=== PATIENT | male | born 1960 | race Caucasian/White ===

== ENCOUNTER 2020-03-26 13:42 | Emergency (ER) | payer MEDICAID ==
[~2020-03-26] VITALS: Ht 175.3 cm; Wt 68.0 kg
[2020-03-26 13:43] VITALS: BP 153/99
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
--- NOTE | 2020-03-26 14:04 | NUR ---
DR BYERS AT BEDSIDE TO PERLITA PT
[2020-03-26] MEDS ORDERED: SILVER SULF. CRM 1% , 25GM ONE (14:09)
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
[2020-03-26] MEDS ORDERED: SILVER SULF. CRM 1% , 25GM TP ONE (14:30)
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
== END 2020-03-26 14:37 | disposition left against medical advice (07) ==
LOC: ED 14:25
DX: T24.211A Burn of second degree of right thigh, initial encounter (principal); T31.0 Burns involving less than 10% of body surface; F17.200 Nicotine dependence, unspecified, uncomplicated; X08.8XXA Exposure to other specified smoke, fire and flames, initial encounter; Y93.89 Activity, other specified; Y92.488 Other paved roadways as the place of occurrence of the external cause; Y99.8 Other external cause status
CPT/HCPCS: 99281

== ENCOUNTER 2020-03-31 12:49 | Emergency (ER) | payer MEDICAID ==
[~2020-03-31] VITALS: Ht 175.3 cm; Wt 72.3 kg
[2020-03-31] MEDS ORDERED: SODIUM CHLORIDE 0.9% 1,000 ML IV ONE (14:00)
[2020-03-31] MEDS ORDERED: LORazepam 2 MG/ML, 1ML IV ONE ×2 (14:00→15:30)
[2020-03-31] MEDS ORDERED: SODIUM CHLORIDE FLUSH 10ML SYR IVF ONE (14:00)
[2020-03-31] MEDS ORDERED: DIPH,PERTUSS(ACELL),TET VAC/PF 0.5 ML IM-VACC ONE ×2 (14:00→14:04)
[2020-03-31] MEDS ORDERED: PIPERACILLIN/TAZO/PMX 3.375GM 50 ML IVPB ONE (14:00)
[2020-03-31] MEDS ORDERED: NICOTINE 21 MG/24 HR PATCH.TD24 TD ONE (14:00)
[2020-03-31] MEDS ORDERED: PIPERACILLIN/TAZO/PMX 3.375GM 50 ML ONE (14:02)
[2020-03-31] MEDS ORDERED: MORPHINE SULFATE 4 MG/ML, 1ML ONE ×2 (14:03→15:13)
[2020-03-31] MEDS ORDERED: LORazepam 2 MG/ML, 1ML ONE ×2 (14:03→17:42)
[2020-03-31] MEDS ORDERED: NICOTINE 14MG/24 HR PATCH.TD24 ONE (14:03)
[2020-03-31] MEDS ORDERED: ONDANSETRON 2MG/ML, 2ML ONE (14:03)
[2020-03-31] MEDS: MORPHINE SULFATE 4 MG/ML, 1ML IVPush PRN ×2 (14:16→15:16)
[2020-03-31 14:17] LABS: MEAN CORPUSCULAR HEMOGLOBIN 35.2 pg (27.5-34.5); MEAN CORPUSCULAR HGB CONC 34.8 g/dL (33.2-36.2); MEAN PLATELET VOLUME 8.7 fL (7.4-10.4); PLATELET COUNT 122 x10^3/uL (130-400); RED BLOOD COUNT 4.07 x10^6/uL (4.38-5.82); RED CELL DISTRIBUTION WIDTH 13.1 % (9.4-14.8)
[2020-03-31 14:27] LABS: ALANINE AMINOTRANSFERASE 35 U/L (12-78); ALBUMIN 2.8 g/dL (3.4-5.0); ANION GAP 14 mmol/L (5-15); CALCIUM 8.9 mg/dL (8.5-10.1); CHLORIDE 90 mmol/L (98-107); CREATININE 1.07 mg/dL (0.7-1.3)
[2020-03-31] MEDS ORDERED: NICOTINE 21 MG/24 HR PATCH.TD24 ONE (14:27)
[2020-03-31 14:29] LABS: ALKALINE PHOSPHATASE 93 U/L (45-117); BILIRUBIN,TOTAL 0.7 mg/dL (0.2-1.0); TOTAL PROTEIN 7.3 g/dL (6.4-8.2)
[2020-03-31] MEDS ORDERED: ALBU8.5H8 INH (14:31)
[2020-03-31 14:32] LABS: INTERNATIONAL NORMALIZED RATIO 0.9 (0.93-1.1); PROTHROMBIN TIME 9.6 Seconds (9.6-11.5)
[2020-03-31 14:37] LABS: MD YES
--- NOTE | 2020-03-31 14:38 | NUR ---
PT PLACED ON ALL ROOM MONITORING, SINUS TACH ON MONITOR IV PLACED, NS AND ANTIBIOTIC INFUSING AFTER BC X 2 DRAWN. PT MEDICATED FOR 10/10 R LEG PAIN. CALL LIGHT WITHIN REACH.
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
--- NOTE | 2020-03-31 15:16 | NUR ---
PT REMEDICATED FOR PERSISTENT PAIN TO R LEG NOW RATED 7/10. PT AWARE OF NEED FOR UA. AWAITING TRANSFER TO [facility].
--- NOTE | 2020-03-31 15:25 | NUR ---
PULSE OX DROPPING TO 87% AFTER 2ND DOSE OF MORPHINE. OXYGEN PLACED AT 2LITERS VIA NC. CALL LIGHT WITHIN REACH.
[2020-03-31] MEDS ORDERED: MAGNESIUM SULFATE PMX 2GM/50ML 50 ML IV ONE (15:30)
[2020-03-31] MEDS ORDERED: MAGNESIUM SULFATE PMX 2GM/50ML 50 ML ONE (15:39)
--- NOTE | 2020-03-31 15:40 | NUR ---
THROUGHPUT RN: PER [facility] NO AVAILABLE BED AT THIS TIME.
--- NOTE | 2020-03-31 15:52 | NUR ---
PT MEDICATED WITH 2ND DOSE OF ATIVAN PER ERP ORDER. HR STILL SINUS TACH 120-140. PT STATES TWO BEERS A DAY AVERAGE, NO HX OF WITHDRAWALS PER PT. URINE COLLECTED/SENT TO LAB. MAGNESIUM INFUSING PER ERP ORDER.
[2020-03-31 16:10] LABS: CHLORIDE,URINE RANDOM 12 mmol/L; POTASSIUM,URINE RANDOM 59 mmol/L; SODIUM,URINE RANDOM 10 mmol/L
[2020-03-31 16:10] LABS: BAND#(MANUAL) 1.12 x10^3/uL; BANDS%(MANUAL) 9 % (0-7); LYMPH#(MANUAL) 0.25 x10^3/uL (1-3.4); LYMPHS% (MANUAL) 2 % (22-44); MONOS#(MANUAL) 0.37 x10^3/uL (0.3-2.7); MONOS% (MANUAL) 3 % (2-9); SEG#(MANUAL) 10.66 x10^3/uL (1.8-6.8); SEGS% (MANUAL) 86 % (42-75)
[2020-03-31 16:12] LABS: <PLATELET ESTIMATE> DECREASED; <PLT MORPHOLOGY> NORMAL PLT MORPH; PMNS WITH VACUOLES 1+; TOXIC GRAN 1+
--- NOTE | 2020-03-31 16:43 | NUR ---
THROUGHPUT RN: PER [facility] NO AVAILABLE BED AT THIS TIME.
--- NOTE | 2020-03-31 16:57 | NUR ---
PINK SHEET COMPLETED, CONTINUE TO AWAIT TRANSFER OF PT TO [facility].
[2020-03-31] MEDS ORDERED: MAGNESIUM SULFATE 1 GM, THIAMINE 100 MG, FOLIC ACID 1 MG in SODIUM CHLORIDE 0.9% 1,000 ML IV ONE (17:00)
--- NOTE | 2020-03-31 17:09 | NUR ---
VERIFICATION WITH ERP THAT PT CAN HAVE FOOD. ED DIET TRAY ORDERED.
--- NOTE | 2020-03-31 17:47 | NUR ---
PT REDOSED WITH ATIVAN 2MG PER ERP ORDER. HR RANGING FROM 125-140S. MEAL TRAY PROVIDED.
--- NOTE | 2020-03-31 17:52 | NUR ---
THROUGHPUT RN: PER [facility] BED DIRTY, WILL CALL WITH ROOM NUMBER ONCE CLEANED.
[2020-03-31] MEDS ORDERED: LORazepam 2 MG/ML, 1ML IVPush ONE (18:00)
--- NOTE | 2020-03-31 18:49 | NUR ---
THROUGHPUT RN: TELEPHONE CALL TO TRANSFER CENTER, [facility] ROOM SHOULD BE CLEAN IN 15 MINUTES. PT WILL GO TO [facility] [phone]. RN TO CALL REPORT TO [phone]
--- NOTE | 2020-03-31 18:55 | NUR ---
ATTEMPT TO CALL REPORT TO [facility]. THEY ARE UNABLE TO TAKE REPORT AT THIS TIME AND STATE NEED TO CALL BACK IN 30 MINUTES.
--- NOTE | 2020-03-31 19:05 | NUR ---
REPORT FROM [facility] BA
--- NOTE | 2020-03-31 19:17 | NUR ---
REPORT TO STEV[facility], TRANSFER OF CARE AT THIS TIME.
--- NOTE | 2020-03-31 19:29 | NUR ---
Called [facility] for auth to transport via [facility]. Spoke to Machelle. NAZ[facility]IO ETA [id number].
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
--- NOTE | 2020-03-31 21:07 | NUR ---
PATIENT RESTING ON STRETCHER WITH EYES CLOSED, WAKES EASILY, NAD, VSS, CALL REZA WITHIN REACH, ASSISTED VOIDING 300ML [place] COLORED URINE VIA URINAL.
[2020-03-31 21:22] VITALS: BP 148/91
== END 2020-03-31 21:29 | disposition short-term general hospital (02) ==
LOC: ED 14:18
DX: T24.311A Burn of third degree of right thigh, initial encounter (principal); T31.0 Burns involving less than 10% of body surface; L03.115 Cellulitis of right lower limb; F10.139 Alcohol abuse with withdrawal, unspecified; E87.1 Hypo-osmolality and hyponatremia; R00.0 Tachycardia, unspecified; Y90.0 Blood alcohol level of less than 20 mg/100 ml
CPT/HCPCS: 36415; 80053; 80320; 82436; 83605; 83735; 83930; 83935; 84133; 84300; 85025; 85610; 87040; 90471; 90715; 93005; 96365; 96366; 96367; 96375; 96376; 99291; J2060; J2270; J2543; J3475; J7030; G0480